=== PATIENT | male | born 1985 | race Caucasian/White ===

== ENCOUNTER 2017-12-22 08:22 | Emergency (ER) | payer SELFPAY ==
[2017-12-22 08:24] VITALS: BP 156/80; PULSE 96; RESP 16; TEMP 36.7; O2SAT 98; BMI 25.8
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
== END 2017-12-22 09:45 | disposition home or self-care (01) ==
LOC: ED 08:49
PROVIDERS: Emergency Provider Emergency Medicine; Family Provider Family Medicine; PCP Family Medicine
DX: S01.312A Laceration without foreign body of left ear, initial encounter (principal); Y08.89XA Assault by other specified means, initial encounter; Y93.84 Activity, sleeping; Y92.9 Unspecified place or not applicable; Z72.0 Tobacco use
CPT/HCPCS: 12011; 99283